=== PATIENT | female | born 1945 | race Caucasian/White ===

== ENCOUNTER → 2017-06-22 | Outpatient (CLI) | payer MEDICARE ==
[~2017-06-22] MED LIST: ASPI-496 PO; CHOL20002 PO; LISI-167 PO; PRAV40TA2 PO; SIMV10TA3 PO
== END | disposition home or self-care (01) ==
LOC: WOUND 09:01
PROVIDERS: ATTEND Internal Medicine
DX: T81.31XA Disruption of external operation (surgical) wound, not elsewhere classified, initial encounter (principal); L72.3 Sebaceous cyst; E78.00 Pure hypercholesterolemia, unspecified; M19.90 Unspecified osteoarthritis, unspecified site; I10 Essential (primary) hypertension; E66.9 Obesity, unspecified; Z68.41 Body mass index [BMI] 40.0-44.9, adult; Z72.89 Other problems related to lifestyle; Y83.8 Other surgical procedures as the cause of abnormal reaction of the patient, or of later complication, without mention of misadventure at the time of the procedure
CPT/HCPCS: 11042; G0463; WOU0463

== ENCOUNTER → 2017-06-26 | Outpatient (CLI) | payer MEDICARE | END | disposition home or self-care (01) | LOC: WOUND 08:31 | PROVIDERS: ATTEND Family Medicine | DX: T81.31XD Disruption of external operation (surgical) wound, not elsewhere classified, subsequent encounter (principal); L72.3 Sebaceous cyst; E78.00 Pure hypercholesterolemia, unspecified; M19.90 Unspecified osteoarthritis, unspecified site; I10 Essential (primary) hypertension; E66.9 Obesity, unspecified; Z68.41 Body mass index [BMI] 40.0-44.9, adult; Z72.89 Other problems related to lifestyle; Y83.8 Other surgical procedures as the cause of abnormal reaction of the patient, or of later complication, without mention of misadventure at the time of the procedure | CPT/HCPCS: 10060 ==

== ENCOUNTER → 2017-07-01 | Outpatient (CLI) | payer MEDICARE | END | disposition home or self-care (01) | LOC: WOUND 10:32 | PROVIDERS: ATTEND Internal Medicine | DX: T81.31XD Disruption of external operation (surgical) wound, not elsewhere classified, subsequent encounter (principal); L72.3 Sebaceous cyst; E78.5 Hyperlipidemia, unspecified; I10 Essential (primary) hypertension; E66.9 Obesity, unspecified; E78.00 Pure hypercholesterolemia, unspecified; M19.90 Unspecified osteoarthritis, unspecified site; Z68.41 Body mass index [BMI] 40.0-44.9, adult; Z72.89 Other problems related to lifestyle; Y83.8 Other surgical procedures as the cause of abnormal reaction of the patient, or of later complication, without mention of misadventure at the time of the procedure | CPT/HCPCS: 11042 ==

== ENCOUNTER → 2018-03-11 | Outpatient (CLI) | payer MEDICARE ==
[~2018-03-11] MED LIST changes: -CHOL20002 PO; +CHOL200052 PO; +OMNIPAQUE 350 MG/ML, 100ML BOTTLE ONE
[2018-03-11 15:20] LABS: BASOPHILS # (AUTO) 0.02 x10^3/uL (0-0.1); BASOPHILS % (AUTO) 0 % (0-1); EOSINOPHILS # (AUTO) 0.12 x10^3/uL (0-0.4); EOSINOPHILS % (AUTO) 3 % (1-7); LYMPHOCYTES % (AUTO) 25 % (22-44); MD NO; MEAN CORPUSCULAR HEMOGLOBIN 31.2 pg (27.0-34.8); MEAN CORPUSCULAR HGB CONC 33.7 g/dL (32.4-35.8); MEAN CORPUSCULAR VOLUME 92.4 fL (80-100); MEAN PLATELET VOLUME 7.6 fL (7.4-10.4); MONOCYTES # (AUTO) 0.45 x10^3/uL (0.2-0.8); MONOCYTES % (AUTO) 10 % (2-9); NEUTROPHILS # (AUTO) 2.79 x10^3/uL (1.8-6.8); NEUTROPHILS % (AUTO) 62 % (42-75); PLATELET COUNT 185 x10^3/uL (130-400); RED BLOOD COUNT 4.94 x10^6/uL (3.82-5.3); RED CELL DISTRIBUTION WIDTH 13.7 % (9.6-15.2)
[2018-03-11 15:33] LABS: % IRON SATURATION 19 % (20-55); ALANINE AMINOTRANSFERASE 30 U/L (12-78); ALBUMIN 3.8 g/dL (3.4-5.0); ANION GAP 10 mmol/L (5-15); CALCIUM 9.2 mg/dL (8.5-10.1); CHLORIDE 108 mmol/L (98-107); CREATININE 0.67 mg/dL (0.55-1.02); IRON LEVEL 70 mcg/dL (50-170); TOTAL IRON BINDING CAPACITY 366 mcg/dL (250-450)
[2018-03-11 15:37] LABS: ALKALINE PHOSPHATASE 84 U/L (45-117)
== END | disposition home or self-care (01) ==
LOC: RAD 14:50
PROVIDERS: ATTEND Internal Medicine Gastroenterology
DX: K63.89 Other specified diseases of intestine (principal); N20.0 Calculus of kidney
CPT/HCPCS: 36415; 71260; 74177; 80053; 82378; 83540; 83550; 85025; Q9967

== ENCOUNTER → 2018-03-19 | Outpatient (CLI) | payer MEDICARE, OTHER ==
[~2018-03-19] MED LIST changes: +ACET500T76 PO; +ENOX40SY4 SQ; +LISI40TA PO; -OMNIPAQUE 350 MG/ML, 100ML BOTTLE ONE; +OXYC-302 PO; +SIMV40TA3 PO
[2018-03-19 09:24] LABS: BASOPHILS # (AUTO) 0.01 x10^3/uL (0-0.1); BASOPHILS % (AUTO) 0 % (0-1); EOSINOPHILS # (AUTO) 0.11 x10^3/uL (0-0.4); EOSINOPHILS % (AUTO) 2 % (1-7); LYMPHOCYTES # (AUTO) 1.07 x10^3/uL (1-3.4); LYMPHOCYTES % (AUTO) 18 % (22-44); MD NO; MEAN CORPUSCULAR HEMOGLOBIN 31.4 pg (27.0-34.8); MEAN CORPUSCULAR HGB CONC 33.8 g/dL (32.4-35.8); MONOCYTES # (AUTO) 0.64 x10^3/uL (0.2-0.8); MONOCYTES % (AUTO) 11 % (2-9); NEUTROPHILS % (AUTO) 69 % (42-75); PLATELET COUNT 213 x10^3/uL (130-400); RED BLOOD COUNT 5.03 x10^6/uL (3.82-5.3); RED CELL DISTRIBUTION WIDTH 13.7 % (9.6-15.2)
[2018-03-19 09:37] LABS: ALANINE AMINOTRANSFERASE 30 U/L (12-78); ALBUMIN 3.8 g/dL (3.4-5.0); ANION GAP 7 mmol/L (5-15); CALCIUM 9.1 mg/dL (8.5-10.1); CHLORIDE 108 mmol/L (98-107); CREATININE 0.75 mg/dL (0.55-1.02)
[2018-03-19 09:42] LABS: ALKALINE PHOSPHATASE 91 U/L (45-117); BILIRUBIN,TOTAL 0.7 mg/dL (0.2-1.0); TOTAL PROTEIN 7.1 g/dL (6.4-8.2)
== END | disposition home or self-care (01) ==
LOC: STAR 08:09
PROVIDERS: ATTEND Surgery
DX: Z01.818 Encounter for other preprocedural examination (principal)
CPT/HCPCS: 36415; 80053; 82378; 85025; 93005

== ENCOUNTER 2018-03-24 08:23 | Inpatient (IN) | payer MEDICARE, OTHER ==
[~2018-03-24] VITALS: Ht 157.5 cm; Wt 101.0 kg
[~2018-03-24 08:23] MED LIST changes: -ACET500T76 PO; -ENOX40SY4 SQ; -OXYC-302 PO
[2018-03-24] MEDS ORDERED: LACTATED RINGERS 1,000 ML IV SCH (08:48)
[2018-03-24] MEDS ORDERED: GABAPENTIN 300 MG CAPSULE PO ONE (09:00)
[2018-03-24] MEDS ORDERED: ACETAMINOPHEN 500 MG TABLET PO ONE (09:00)
[2018-03-24] MEDS ORDERED: SCOPOLAMINE PATCH, 1.5MG PATCH.TD72 TD ONE (09:00)
[2018-03-24 09:10] VITALS: BP 142/86
[2018-03-24] MEDS ORDERED: MIDAZOLAM 1 MG/ML, 2ML ONE (09:33)
[2018-03-24] MEDS ORDERED: FENTANYL PF 250 MCG/5ML ONE (09:33)
[2018-03-24] MEDS ORDERED: BUPIVACAINE LIPOSOME/PF 20ML INFIL ONE (09:47)
[2018-03-24] MEDS ORDERED: BUPIVACAINE LIPOSOME/PF 10ML INFIL ONE (10:00)
[2018-03-24] MEDS ORDERED: ROCURONIUM 10 MG/ML,10ML ONE (11:03)
[2018-03-24] MEDS ORDERED: CEFOTETAN PMX 2GM/50ML 50 ML IVPB ONE (11:03)
[2018-03-24] MEDS ORDERED: ONDANSETRON 2MG/ML, 2ML ONE ×2 (11:03→13:52)
[2018-03-24] MEDS ORDERED: NEOSTIGMINE 1 MG/ML, 10ML ONE (11:03)
[2018-03-24] MEDS ORDERED: PROPOFOL 10 MG/ML, 20ML ONE (11:03)
[2018-03-24] MEDS ORDERED: GLYCOPYRROLATE 0.2MG/1ML, 5ML ONE (11:03)
[2018-03-24] MEDS ORDERED: SUCCINYLCHOLINE 20 MG/ML, 10ML ONE (11:03)
[2018-03-24] MEDS ORDERED: DEXAMETHASONE 4 MG/ML, 1ML ONE (11:03)
[2018-03-24] MEDS ORDERED: PROCHLORPERAZINE 5 MG/ML, 2ML IV PRN (13:00)
[2018-03-24] MEDS ORDERED: OXYcodone 5 MG/5 ML ORAL.SOL UDC PO PRN (13:00)
[2018-03-24] MEDS ORDERED: ONDANSETRON 2MG/ML, 2ML IV PRN ×2 (13:00→14:30)
[2018-03-24] MEDS ORDERED: DIPHENHYDRAMINE 50 MG/ML, 1ML IVPush PRN ×2 (13:00→14:30)
[2018-03-24] MEDS ORDERED: HYDROmorphone 1 MG/ML, 1ML IV PRN (13:00)
[2018-03-24] MEDS ORDERED: MEPERIDINE/PF 25MG/0.5ML IVPush PRN (13:00)
[2018-03-24] MEDS ORDERED: LABETALOL 5MG/ML, 20ML IV PRN (13:00)
[2018-03-24] MEDS ORDERED: hydrALAzine 20 MG/ML, 1ML IV PRN (13:00)
[2018-03-24] MEDS ORDERED: OXYcodone 5 MG/5 ML ORAL.SOL UDC ONE (13:03)
[2018-03-24] MEDS ORDERED: FENTANYL PF 100 MCG/2ML ONE (13:03)
[2018-03-24] MEDS: FENTANYL PF 100 MCG/2ML IV PRN ×2 (13:08→13:18)
[2018-03-24 14:30] VITALS: BP 137/84
[2018-03-24] MEDS ORDERED: TRAZODONE 50MG TABLET PO PRN (14:30)
[2018-03-24] MEDS ORDERED: DEXAMETHASONE 4 MG/ML, 1ML IVPush PRN (14:30)
[2018-03-24] MEDS ORDERED: LORazepam 2 MG/ML, 1ML IVPush PRN (14:30)
[2018-03-24] MEDS ORDERED: HALOPERIDOL 5 MG/ML IVPush PRN (14:30)
[2018-03-24] MEDS ORDERED: SCOPOLAMINE PATCH, 1.5MG PATCH.TD72 TD PRN (14:30)
[2018-03-24] MEDS ORDERED: LORazepam 1MG TABLET PO PRN (14:30)
[2018-03-24] MEDS ORDERED: DIPHENHYDRAMINE 25 MG CAPSULE PO PRN (15:00)
[2018-03-24] MEDS ORDERED: HYDROmorphone 2 MG/ML, 1ML IVPush PRN (15:00)
[2018-03-24] MEDS: ACETAMINOPHEN 500 MG TABLET PO SCH ×2 (17:00→23:06)
[2018-03-24] MEDS: OXYcodone IR 5MG TABLET PO PRN ×2 (17:00→21:02)
[2018-03-24] MEDS: D5%-0.45NACL+KCL 20MEQ 1,000 ML IV SCH (17:00)
[2018-03-24] MEDS: IBUPROFEN 800 MG TABLET PO SCH ×2 (17:00→21:02)
[2018-03-24 19:30] VITALS: BP 114/74
[2018-03-24] MEDS: SIMVASTATIN 40 MG TABLET PO SCH (21:02)
[2018-03-25 00:10] VITALS: BP 114/69
[2018-03-25] MEDS: OXYcodone IR 5MG TABLET PO PRN (02:48)
[2018-03-25 04:26] VITALS: BP 118/68
[2018-03-25] MEDS: ACETAMINOPHEN 500 MG TABLET PO SCH ×4 (05:06→23:35)
[2018-03-25] MEDS: D5%-0.45NACL+KCL 20MEQ 1,000 ML IV SCH ×2 (05:07→23:00)
[2018-03-25 06:10] LABS: BASOPHILS # (AUTO) 0.03 x10^3/uL (0-0.1); BASOPHILS % (AUTO) 0 % (0-1); EOSINOPHILS # (AUTO) 0.03 x10^3/uL (0-0.4); EOSINOPHILS % (AUTO) 0 % (1-7); LYMPHOCYTES # (AUTO) 0.79 x10^3/uL (1-3.4); LYMPHOCYTES % (AUTO) 10 % (22-44); MD NO; MEAN CORPUSCULAR HEMOGLOBIN 30.9 pg (27.0-34.8); MEAN CORPUSCULAR HGB CONC 32.8 g/dL (32.4-35.8); MEAN CORPUSCULAR VOLUME 94.2 fL (80-100); MEAN PLATELET VOLUME 8.5 fL (7.4-10.4); MONOCYTES # (AUTO) 0.83 x10^3/uL (0.2-0.8); MONOCYTES % (AUTO) 11 % (2-9); NEUTROPHILS # (AUTO) 5.93 x10^3/uL (1.8-6.8); NEUTROPHILS % (AUTO) 78 % (42-75); PLATELET COUNT 182 x10^3/uL (130-400); RED BLOOD COUNT 4.33 x10^6/uL (3.82-5.3); RED CELL DISTRIBUTION WIDTH 13.6 % (9.6-15.2)
[2018-03-25 06:56] LABS: CHLORIDE 105 mmol/L (98-107)
[2018-03-25 07:00] LABS: ANION GAP 10 mmol/L (5-15); CALCIUM 8.3 mg/dL (8.5-10.1); CREATININE 0.83 mg/dL (0.55-1.02)
[2018-03-25 07:27] VITALS: BP 111/72
[2018-03-25] MEDS: IBUPROFEN 800 MG TABLET PO SCH ×3 (09:26→21:25)
[2018-03-25] MEDS ORDERED: ENOXAPARIN 40 MG/0.4 ML SQ SCH (10:50)
[2018-03-25 14:43] VITALS: BP 116/72
[2018-03-25 19:59] VITALS: BP 113/71
[2018-03-25] MEDS: SIMVASTATIN 40 MG TABLET PO SCH (21:25)
[2018-03-26 00:10] VITALS: BP 117/73
[2018-03-26] MEDS: ACETAMINOPHEN 500 MG TABLET PO SCH ×4 (04:38→23:16)
[2018-03-26 05:23] LABS: BASOPHILS # (AUTO) 0.04 x10^3/uL (0-0.1); BASOPHILS % (AUTO) 0 % (0-1); EOSINOPHILS # (AUTO) 0.26 x10^3/uL (0-0.4); EOSINOPHILS % (AUTO) 3 % (1-7); LYMPHOCYTES # (AUTO) 0.75 x10^3/uL (1-3.4); LYMPHOCYTES % (AUTO) 8 % (22-44); MD NO; MEAN CORPUSCULAR HEMOGLOBIN 31.7 pg (27.0-34.8); MEAN CORPUSCULAR HGB CONC 33.5 g/dL (32.4-35.8); MEAN CORPUSCULAR VOLUME 94.6 fL (80-100); MEAN PLATELET VOLUME 8.6 fL (7.4-10.4); MONOCYTES # (AUTO) 0.83 x10^3/uL (0.2-0.8); MONOCYTES % (AUTO) 9 % (2-9); NEUTROPHILS # (AUTO) 7.73 x10^3/uL (1.8-6.8); NEUTROPHILS % (AUTO) 81 % (42-75); PLATELET COUNT 174 x10^3/uL (130-400); RED BLOOD COUNT 3.84 x10^6/uL (3.82-5.3); RED CELL DISTRIBUTION WIDTH 13.9 % (9.6-15.2)
[2018-03-26 05:27] LABS: ANION GAP 6 mmol/L (5-15); CALCIUM 8.5 mg/dL (8.5-10.1); CHLORIDE 109 mmol/L (98-107); CREATININE 0.83 mg/dL (0.55-1.02)
[2018-03-26 06:42] VITALS: BP 115/77
[2018-03-26] MEDS: IBUPROFEN 800 MG TABLET PO SCH ×3 (09:22→21:59)
[2018-03-26] MEDS: D5%-0.45NACL+KCL 20MEQ 1,000 ML IV SCH (13:18)
[2018-03-26 13:51] VITALS: BP 122/74
[2018-03-26 19:16] VITALS: BP 104/61
[2018-03-26] MEDS: SIMVASTATIN 40 MG TABLET PO SCH (21:59)
[2018-03-27 03:15] VITALS: BP 111/69
[2018-03-27] MEDS: D5%-0.45NACL+KCL 20MEQ 1,000 ML IV SCH (03:36)
[2018-03-27] MEDS: ACETAMINOPHEN 500 MG TABLET PO SCH (05:19)
[2018-03-27 05:33] LABS: ANION GAP 7 mmol/L (5-15); CHLORIDE 112 mmol/L (98-107); CREATININE 0.76 mg/dL (0.55-1.02)
[2018-03-27 05:41] LABS: BASOPHILS # (AUTO) 0.02 x10^3/uL (0-0.1); BASOPHILS % (AUTO) 0 % (0-1); EOSINOPHILS # (AUTO) 0.01 x10^3/uL (0-0.4); EOSINOPHILS % (AUTO) 0 % (1-7); LYMPHOCYTES # (AUTO) 0.81 x10^3/uL (1-3.4); LYMPHOCYTES % (AUTO) 11 % (22-44); MD NO; MEAN CORPUSCULAR HEMOGLOBIN 31.9 pg (27.0-34.8); MEAN CORPUSCULAR HGB CONC 34.2 g/dL (32.4-35.8); MEAN CORPUSCULAR VOLUME 93.1 fL (80-100); MEAN PLATELET VOLUME 8.3 fL (7.4-10.4); MONOCYTES # (AUTO) 0.65 x10^3/uL (0.2-0.8); MONOCYTES % (AUTO) 9 % (2-9); NEUTROPHILS # (AUTO) 5.76 x10^3/uL (1.8-6.8); NEUTROPHILS % (AUTO) 79 % (42-75); PLATELET COUNT 177 x10^3/uL (130-400); RED BLOOD COUNT 3.34 x10^6/uL (3.82-5.3); RED CELL DISTRIBUTION WIDTH 13.3 % (9.6-15.2)
[2018-03-27] MEDS ORDERED: ACET500T76 PO (09:11)
[2018-03-27] MEDS ORDERED: OXYC-302 PO (09:12)
[2018-03-27] MEDS ORDERED: ENOX40SY4 SQ (09:13)
[2018-03-27] MEDS ORDERED: ENOXAPARIN 40 MG/0.4 ML SQ SCH (09:30)
[2018-03-27] MEDS: IBUPROFEN 800 MG TABLET PO SCH (09:50)
[2018-03-27] MEDS ORDERED: LISINOPRIL 20 MG TABLET PO SCH (10:00)
== END 2018-03-27 10:12 | disposition home or self-care (01) | DRG 330 ==
LOC: ORIP 08:23 → EDSTATUS 11:00 → 4NOR 14:09
PROVIDERS: ADMIT Surgery; ATTEND Surgery
PROC: 0DTF4ZZ Resection of Right Large Intestine, Percutaneous Endoscopic Approach (ICD-10-PCS; principal; 2018-03-24 11:00)
DX: C18.2 Malignant neoplasm of ascending colon (principal); Z68.41 Body mass index [BMI] 40.0-44.9, adult; E78.00 Pure hypercholesterolemia, unspecified; I10 Essential (primary) hypertension; K58.9 Irritable bowel syndrome, unspecified; F17.210 Nicotine dependence, cigarettes, uncomplicated; M19.90 Unspecified osteoarthritis, unspecified site; E66.01 Morbid (severe) obesity due to excess calories; Z90.49 Acquired absence of other specified parts of digestive tract; Z80.1 Family history of malignant neoplasm of trachea, bronchus and lung; Z79.899 Other long term (current) drug therapy
CPT/HCPCS: 36415; 80048; 85025; 86850; 86900; 88307; C9290; G0378; J1100; J1650; J2250; J2405; J2704; J2710; J3010; J3490; C1765; J0330; J3480; J7120

== ENCOUNTER 2018-04-27 07:36 | Emergency (ER) | payer MEDICARE ==
[~2018-04-27] VITALS: Ht 157.5 cm; Wt 97.4 kg
[~2018-04-27 07:36] MED LIST changes: +ACET500T76 PO; +ENOX40SY4 SQ; +OXYC-302 PO
[2018-04-27 08:15] LABS: BASOPHILS # (AUTO) 0.01 x10^3/uL (0-0.1); BASOPHILS % (AUTO) 0 % (0-1); EOSINOPHILS % (AUTO) 2 % (1-7); LYMPHOCYTES # (AUTO) 0.75 x10^3/uL (1-3.4); LYMPHOCYTES % (AUTO) 12 % (22-44); MD NO; MEAN CORPUSCULAR HEMOGLOBIN 29.4 pg (27.0-34.8); MEAN CORPUSCULAR HGB CONC 32.7 g/dL (32.4-35.8); MEAN CORPUSCULAR VOLUME 90.1 fL (80-100); MEAN PLATELET VOLUME 8.2 fL (7.4-10.4); MONOCYTES # (AUTO) 0.46 x10^3/uL (0.2-0.8); MONOCYTES % (AUTO) 8 % (2-9); NEUTROPHILS # (AUTO) 4.81 x10^3/uL (1.8-6.8); NEUTROPHILS % (AUTO) 79 % (42-75); PLATELET COUNT 217 x10^3/uL (130-400); RED BLOOD COUNT 4.26 x10^6/uL (3.82-5.3); RED CELL DISTRIBUTION WIDTH 14.1 % (9.6-15.2)
[2018-04-27 08:23] LABS: ALANINE AMINOTRANSFERASE 24 U/L (12-78); ALBUMIN 3.7 g/dL (3.4-5.0); ANION GAP 11 mmol/L (5-15); CHLORIDE 112 mmol/L (98-107); CREATININE 0.83 mg/dL (0.55-1.02)
[2018-04-27 08:25] LABS: ALKALINE PHOSPHATASE 91 U/L (45-117); BILIRUBIN,TOTAL 0.9 mg/dL (0.2-1.0); TOTAL PROTEIN 6.8 g/dL (6.4-8.2)
[2018-04-27] MEDS ORDERED: HYDROmorphone 2 MG/ML, 1ML IM ONE (08:30)
[2018-04-27] MEDS ORDERED: ONDANSETRON ODT 4 MG PO ONE (08:30)
[2018-04-27] MEDS ORDERED: HYDROmorphone 2 MG/ML, 1ML ONE (08:41)
[2018-04-27] MEDS ORDERED: ONDANSETRON ODT 4 MG ONE (08:41)
[2018-04-27 10:28] LABS: MICROSCOPIC INDICATED
[2018-04-27 10:38] LABS: CULTURE INDICATED? NO
[2018-04-27 11:12] VITALS: BP 136/57
== END 2018-04-27 11:23 | disposition home or self-care (01) ==
LOC: ED 10:14
DX: N13.2 Hydronephrosis with renal and ureteral calculous obstruction (principal); E78.5 Hyperlipidemia, unspecified; I10 Essential (primary) hypertension
CPT/HCPCS: 36415; 74018; 76770; 80053; 81001; 83690; 85025; 96372; 99284; J1170; Q0162

== ENCOUNTER 2018-05-08 12:16 | Observation (INO) | payer MEDICARE ==
[~2018-05-08] VITALS: Ht 157.5 cm; Wt 96.0 kg
[2018-05-08 13:59] LABS: MICROSCOPIC INDICATED
[2018-05-08] MEDS ORDERED: SODIUM CHLORIDE FLUSH 10ML SYR IVF ONE (14:00)
[2018-05-08] MEDS ORDERED: HYDROmorphone 2 MG/ML, 1ML IVPush PRN ×2 (14:00→17:00)
[2018-05-08] MEDS ORDERED: ONDANSETRON 2MG/ML, 2ML IVPush ONE (14:00)
[2018-05-08] MEDS ORDERED: HYDROmorphone 2 MG/ML, 1ML ONE (14:02)
[2018-05-08] MEDS ORDERED: ONDANSETRON 2MG/ML, 2ML ONE ×2 (14:02→16:28)
[2018-05-08 14:04] LABS: BASOPHILS # (AUTO) 0.01 x10^3/uL (0-0.1); BASOPHILS % (AUTO) 0 % (0-1); EOSINOPHILS # (AUTO) 0.08 x10^3/uL (0-0.4); EOSINOPHILS % (AUTO) 1 % (1-7); LYMPHOCYTES # (AUTO) 0.59 x10^3/uL (1-3.4); LYMPHOCYTES % (AUTO) 7 % (22-44); MD NO; MEAN CORPUSCULAR HEMOGLOBIN 29.6 pg (27.0-34.8); MEAN CORPUSCULAR HGB CONC 33.1 g/dL (32.4-35.8); MEAN CORPUSCULAR VOLUME 89.4 fL (80-100); MEAN PLATELET VOLUME 8.6 fL (7.4-10.4); MONOCYTES # (AUTO) 0.61 x10^3/uL (0.2-0.8); MONOCYTES % (AUTO) 8 % (2-9); NEUTROPHILS # (AUTO) 6.82 x10^3/uL (1.8-6.8); NEUTROPHILS % (AUTO) 84 % (42-75); PLATELET COUNT 212 x10^3/uL (130-400); RED BLOOD COUNT 4.37 x10^6/uL (3.82-5.3); RED CELL DISTRIBUTION WIDTH 14.1 % (9.6-15.2)
[2018-05-08 14:07] LABS: ALBUMIN 3.7 g/dL (3.4-5.0); ANION GAP 10 mmol/L (5-15); CALCIUM 8.8 mg/dL (8.5-10.1); CHLORIDE 110 mmol/L (98-107); CREATININE 1.01 mg/dL (0.55-1.02)
[2018-05-08 14:25] LABS: CULTURE INDICATED? YES
[2018-05-08] MEDS ORDERED: KETOROLAC 30 MG/1 ML ONE (15:10)
[2018-05-08] MEDS ORDERED: METOCLOPRAMIDE 5 MG/ML, 2ML ONE (15:11)
[2018-05-08] MEDS ORDERED: METOCLOPRAMIDE 5 MG/ML, 2ML IVPush ONE (15:30)
[2018-05-08] MEDS ORDERED: KETOROLAC 30 MG/1 ML IVPush ONE (15:30)
[2018-05-08 15:48] VITALS: BP 130/76
[2018-05-08] MEDS ORDERED: FENTANYL PF 250 MCG/5ML ONE (15:51)
[2018-05-08] MEDS ORDERED: OMNIPAQUE 350 MG/ML, 50 ML BOTTLE ONE (16:20)
[2018-05-08] MEDS ORDERED: DEXAMETHASONE 4 MG/ML, 1ML ONE (16:28)
[2018-05-08] MEDS ORDERED: SUCCINYLCHOLINE 20 MG/ML, 10ML ONE (16:28)
[2018-05-08] MEDS ORDERED: CEFAZOLIN 1,000 MG ONE (16:28)
[2018-05-08] MEDS ORDERED: PROPOFOL 10 MG/ML, 20ML ONE (16:28)
[2018-05-08] MEDS ORDERED: OMNIPAQUE 350 MG/ML, 50 ML BOTTLE INJ ONE (16:49)
[2018-05-08] MEDS ORDERED: ALBUTEROL SULFATE 2.5 MG/3 ML NPPB PRN (17:00)
[2018-05-08] MEDS ORDERED: FENTANYL PF 100 MCG/2ML IV PRN (17:00)
[2018-05-08] MEDS ORDERED: PROMETHAZINE 25 MG/ML, 1ML IV PRN (17:00)
[2018-05-08] MEDS ORDERED: LABETALOL 5MG/ML, 20ML IV PRN (17:00)
[2018-05-08] MEDS ORDERED: HALOPERIDOL 5 MG/ML IV PRN (17:00)
[2018-05-08] MEDS ORDERED: OXYcodone 5 MG/5 ML ORAL.SOL UDC PO PRN (17:00)
[2018-05-08] MEDS ORDERED: hydrALAzine 20 MG/ML, 1ML IV PRN (17:00)
== END 2018-05-08 19:52 | disposition home or self-care (01) ==
LOC: OR 16:21 → EDIP 16:45 → 4NOR 17:40
PROVIDERS: ADMIT Urology; ATTEND Urology
DX: N20.1 Calculus of ureter (principal); E78.5 Hyperlipidemia, unspecified; I10 Essential (primary) hypertension; K63.9 Disease of intestine, unspecified; Z87.442 Personal history of urinary calculi
CPT/HCPCS: 36415; 52356; 74176; 74420; 76000; 80048; 81001; 82040; 82360; 85025; 87086; 88300; 96374; 96375; 99284; C1769; G0378; J0330; J0690; J1100; J1170; J1885; J2405; J2704; J2765; J3010; Q9967

== ENCOUNTER 2019-09-09 23:53 | Emergency (ER) | payer OTHER, MEDICARE ==
[~2019-09-09] VITALS: Ht 160 cm; Wt 96.0 kg
[~2019-09-09 23:53] MED LIST changes: +SIMV10TA18 PO; -SIMV10TA3 PO; +SIMV40TA20 PO; -SIMV40TA3 PO
[2019-09-10] MEDS ORDERED: KETOROLAC 30 MG/1 ML IVPush ONE
[2019-09-10] MEDS ORDERED: ONDANSETRON 2MG/ML, 2ML IVPush ONE
[2019-09-10] MEDS ORDERED: SODIUM CHLORIDE FLUSH 10ML SYR IVF ONE
[2019-09-10] MEDS ORDERED: HYDROmorphone 1 MG/ML, 1ML INJ IVPush PRN
[2019-09-10] MEDS ORDERED: KETOROLAC 30 MG/1 ML ONE (00:04)
--- NOTE | 2019-09-10 00:04 | NUR ---
THIS IS A 74 YO FEMALE COMING IN FOR ACUTE ONSET LLQ ABD PAIN STARTING AT 1030PM. PATIENT STATES "I'VE HAD KIDNEY STONES IN THE PAST AND IT FEELS LIKE THAT". PATINET C/O PAIN AND NAUSEA, NO VOMITING. DENIES DYSURIA OR HEMATURIA AT THIS TIME, DENIES FEVERS AT HOME. LLQ TENDER TO PALPATION. DENIES FLANK PAIN. A&OX4, ALL MONITORING IN PLACE, NSR ON MONITOR. CALL LIGHT IN REACH.
[2019-09-10] MEDS ORDERED: ONDANSETRON 2MG/ML, 2ML ONE (00:05)
[2019-09-10] MEDS ORDERED: HYDROmorphone 1 MG/ML, 1ML INJ ONE (00:05)
--- NOTE | 2019-09-10 00:13 | NUR ---
TASK RN: PT MEDICATED PER EMAR FOR 4/10 LLQ/L FLANK PAIN. PT PLACED ON 2L O2 BY NC FOR SUPPORT WHILE IN CT. PT TO CT AT THIS TIME.
[2019-09-10 00:21] LABS: BASOPHILS # (AUTO) 0.02 x10^3/uL (0-0.1); BASOPHILS % (AUTO) 0 % (0-1); EOSINOPHILS # (AUTO) 0.14 x10^3/uL (0-0.4); EOSINOPHILS % (AUTO) 3 % (1-7); LYMPHOCYTES # (AUTO) 0.89 x10^3/uL (1-3.4); LYMPHOCYTES % (AUTO) 16 % (22-44); MD NO; MEAN CORPUSCULAR HEMOGLOBIN 31.6 pg (27.0-34.8); MEAN CORPUSCULAR HGB CONC 33.5 g/dL (32.4-35.8); MEAN CORPUSCULAR VOLUME 94.3 fL (80-100); MEAN PLATELET VOLUME 7.9 fL (7.4-10.4); MONOCYTES # (AUTO) 0.51 x10^3/uL (0.2-0.8); MONOCYTES % (AUTO) 9 % (2-9); NEUTROPHILS # (AUTO) 3.97 x10^3/uL (1.8-6.8); NEUTROPHILS % (AUTO) 72 % (42-75); PLATELET COUNT 165 x10^3/uL (130-400); RED BLOOD COUNT 4.63 x10^6/uL (3.82-5.3); RED CELL DISTRIBUTION WIDTH 12.4 % (9.6-15.2)
[2019-09-10 00:33] LABS: ALANINE AMINOTRANSFERASE 21 U/L (12-78); ALBUMIN 3.5 g/dL (3.4-5.0); ANION GAP 9 mmol/L (5-15); CALCIUM 8.9 mg/dL (8.5-10.1); CHLORIDE 110 mmol/L (98-107); CREATININE 0.96 mg/dL (0.55-1.02)
[2019-09-10 00:35] LABS: ALKALINE PHOSPHATASE 105 U/L (45-117); BILIRUBIN,TOTAL 0.6 mg/dL (0.2-1.0); TOTAL PROTEIN 6.7 g/dL (6.4-8.2)
--- NOTE | 2019-09-10 01:01 | NUR ---
PATIENT AMBULATORY WITH STEADY GAIT TO RESTROOM. UA CUP PROVIDED
--- NOTE | 2019-09-10 01:06 | NUR ---
UA COLLECTED AND SENT
[2019-09-10 01:20] LABS: MICROSCOPIC AUTO
[2019-09-10 01:21] LABS: CULTURE INDICATED? YES
[2019-09-10] MEDS ORDERED: PROMETHAZINE 25 MG/ML, 1ML IM ONE (01:30)
[2019-09-10] MEDS ORDERED: PROMETHAZINE 25 MG/ML, 1ML ONE (01:34)
--- NOTE | 2019-09-10 01:39 | NUR ---
PATIENT MEDICATED PER EMAR FOR NAUSEA. TOLERATED WELL. ERP IN ROOM
[2019-09-10 01:43] VITALS: BP 130/71
--- NOTE | 2019-09-10 02:22 | NUR ---
Patient given discharge instructions and they have confirmed that they understand the instructions. Patient ambulatory with steady gait.
== END 2019-09-10 00:39 | disposition home or self-care (01) ==
LOC: ED 09-10 00:38
DX: N20.2 Calculus of kidney with calculus of ureter (principal); R94.31 Abnormal electrocardiogram [ECG] [EKG]; I10 Essential (primary) hypertension; E78.5 Hyperlipidemia, unspecified; Z85.038 Personal history of other malignant neoplasm of large intestine
CPT/HCPCS: 36415; 74176; 80053; 81001; 85025; 87086; 93005; 96372; 96374; 96375; 99285; J1170; J1885; J2405; J2550

== ENCOUNTER 2019-09-16 11:39 | Emergency (ER) | payer OTHER, MEDICARE ==
[~2019-09-16] VITALS: Ht 157.5 cm; Wt 96.5 kg
--- NOTE | 2019-09-16 12:07 | NUR ---
PATIENT STATES SHE HAS KIDNEY STONES AND IS CERTAIN BECAUSE SHE WAS HERE LAST THURSDAY AND CT CONFIRMED STONES ACCORDING TO HER, AND SHE WAS DISCHARGED WITH FLOMAX BUT CAN'T TAKE IT BECAUSE SHE GETS NAUSEATED. SHE CONTINUES TO HAVE LEFT FLANK PAIN. URINE OBTAINED AND SENT TO LAB LABELED IN HER PRESENCE.
[2019-09-16] MEDS ORDERED: ASPI-496 PO (12:15)
[2019-09-16] MEDS ORDERED: HYDROmorphone 1 MG/ML, 1ML INJ ONE (12:25)
[2019-09-16] MEDS ORDERED: ONDANSETRON 2MG/ML, 2ML ONE (12:26)
[2019-09-16] MEDS ORDERED: SODIUM CHLORIDE FLUSH 10ML SYR IVF ONE (12:30)
[2019-09-16] MEDS ORDERED: HYDROmorphone 1 MG/ML, 1ML INJ IVPush PRN (12:30)
[2019-09-16] MEDS ORDERED: ONDANSETRON 2MG/ML, 2ML IVPush ONE (12:30)
--- NOTE | 2019-09-16 12:30 | NUR ---
sent urine, but then alerted that it needs to be straight cath urine. medicated patient. ultrasound here, when they are finished will straight cath patient to allow time for bladder filling.
[2019-09-16 12:39] LABS: MICROSCOPIC AUTO
[2019-09-16 12:43] LABS: MEAN CORPUSCULAR HEMOGLOBIN 31.7 pg (27.0-34.8); MEAN CORPUSCULAR HGB CONC 33.9 g/dL (32.4-35.8); MEAN CORPUSCULAR VOLUME 93.3 fL (80-100); MEAN PLATELET VOLUME 8.1 fL (7.4-10.4); PLATELET COUNT 169 x10^3/uL (130-400); RED BLOOD COUNT 4.82 x10^6/uL (3.82-5.3); RED CELL DISTRIBUTION WIDTH 12.1 % (9.6-15.2)
[2019-09-16 12:45] LABS: CULTURE INDICATED? YES
[2019-09-16 12:50] LABS: ALANINE AMINOTRANSFERASE 25 U/L (12-78); ALBUMIN 3.6 g/dL (3.4-5.0); ANION GAP 11 mmol/L (5-15); CALCIUM 9.7 mg/dL (8.5-10.1); CHLORIDE 105 mmol/L (98-107); CREATININE 1.28 mg/dL (0.55-1.02)
[2019-09-16 12:52] LABS: ALKALINE PHOSPHATASE 105 U/L (45-117); BILIRUBIN,TOTAL 1.1 mg/dL (0.2-1.0); TOTAL PROTEIN 7.3 g/dL (6.4-8.2)
[2019-09-16 13:00] LABS: BASOPHILS # (AUTO) 0.01 x10^3/uL (0-0.1); BASOPHILS % (AUTO) 0 % (0-1); EOSINOPHILS # (AUTO) 0.03 x10^3/uL (0-0.4); EOSINOPHILS % (AUTO) 0 % (1-7); LYMPHOCYTES # (AUTO) 0.66 x10^3/uL (1-3.4); LYMPHOCYTES % (AUTO) 7 % (22-44); MD SCAN; MONOCYTES % (AUTO) 7 % (2-9); NEUTROPHILS # (AUTO) 8.58 x10^3/uL (1.8-6.8); NEUTROPHILS % (AUTO) 86 % (42-75)
--- NOTE | 2019-09-16 13:20 | NUR ---
straight cath urine sent.
[2019-09-16 13:39] VITALS: BP 155/78
--- NOTE | 2019-09-16 13:41 | NUR ---
DISCHARGE TEACHING REVIEWED
== END 2019-09-16 13:49 | disposition home or self-care (01) ==
LOC: ED 12:50
DX: N13.2 Hydronephrosis with renal and ureteral calculous obstruction (principal); I10 Essential (primary) hypertension
CPT/HCPCS: 36415; 76770; 80053; 81001; 85025; 87086; 99284; J1170; J2405

== ENCOUNTER 2019-11-06 16:20 | Inpatient (IN) | payer OTHER, MEDICARE ==
[~2019-11-06] VITALS: Ht 157.5 cm; Wt 100.0 kg
[2019-11-06] MEDS ORDERED: SODIUM CHLORIDE 0.9% 1,000ML IV ONE (17:00)
[2019-11-06] MEDS ORDERED: HYDROmorphone 2 MG/ML, 1ML IVPush PRN (17:00)
[2019-11-06] MEDS ORDERED: ONDANSETRON 2MG/ML, 2ML IVPush ONE (17:00)
[2019-11-06] MEDS ORDERED: KETOROLAC 30 MG/1 ML IVPush ONE (17:00)
--- NOTE | 2019-11-06 17:00 | NUR ---
PT HAS CO OF ABDOMINAL PAIN, DENIES PAIN URINATING OR INCREASED FREQUENCY. NO CP OR SOB. NO N/V/. PT NOT IN DISTRESS.
[2019-11-06] MEDS ORDERED: KETOROLAC 30 MG/1 ML ONE (17:07)
[2019-11-06] MEDS ORDERED: ONDANSETRON 2MG/ML, 2ML ONE (17:08)
[2019-11-06] MEDS ORDERED: HYDROmorphone 1 MG/ML, 1ML INJ ONE (17:08)
[2019-11-06 17:18] LABS: BASOPHILS % (AUTO) 0 % (0-1); EOSINOPHILS # (AUTO) 0.02 x10^3/uL (0-0.4); EOSINOPHILS % (AUTO) 0 % (1-7); LYMPHOCYTES # (AUTO) 0.51 x10^3/uL (1-3.4); LYMPHOCYTES % (AUTO) 6 % (22-44); MD NO; MEAN CORPUSCULAR HEMOGLOBIN 31.7 pg (27.0-34.8); MEAN CORPUSCULAR HGB CONC 34.2 g/dL (32.4-35.8); MEAN CORPUSCULAR VOLUME 92.5 fL (80-100); MEAN PLATELET VOLUME 8.3 fL (7.4-10.4); MONOCYTES # (AUTO) 0.34 x10^3/uL (0.2-0.8); MONOCYTES % (AUTO) 4 % (2-9); NEUTROPHILS # (AUTO) 7.37 x10^3/uL (1.8-6.8); NEUTROPHILS % (AUTO) 89 % (42-75); PLATELET COUNT 160 x10^3/uL (130-400); RED BLOOD COUNT 4.81 x10^6/uL (3.82-5.3); RED CELL DISTRIBUTION WIDTH 12.7 % (9.6-15.2)
--- NOTE | 2019-11-06 17:20 | NUR ---
PT MEDICATED PER ORDERS. IVF. IV ESTABLISHED. VSS
[2019-11-06 17:24] LABS: ANION GAP 7 mmol/L (5-15); CALCIUM 9.1 mg/dL (8.5-10.1); CHLORIDE 110 mmol/L (98-107); CREATININE 1.03 mg/dL (0.55-1.02)
[2019-11-06 17:25] LABS: ALANINE AMINOTRANSFERASE 29 U/L (12-78); ALBUMIN 3.7 g/dL (3.4-5.0)
[2019-11-06 17:27] LABS: ALKALINE PHOSPHATASE 105 U/L (45-117)
--- NOTE | 2019-11-06 18:12 | NUR ---
PT AMBULATED TO BATHROOM W STEADY GAIT FOR UA
[2019-11-06 18:32] LABS: MICROSCOPIC INDICATED
--- NOTE | 2019-11-06 18:54 | NUR ---
ASSUMED CARE OF PT AT THIS TIME.
--- NOTE | 2019-11-06 19:09 | NUR ---
PT RESTING AT THIS TIME. AWARE OF INPATIENT ADMISSION. DENIES PAIN AT THIS TIME.
[2019-11-06] MEDS ORDERED: hydrALAzine 20 MG/ML, 1ML IVPush PRN (19:30)
[2019-11-06] MEDS ORDERED: ONDANSETRON 2MG/ML, 2ML IVPush PRN (19:30)
[2019-11-06] MEDS ORDERED: morphine SULFATE 10 MG/ML, 1ML IVPush PRN (19:30)
[2019-11-06] MEDS ORDERED: HYDROcodone/APAP 5/325 TABLET PO PRN (19:30)
[2019-11-06] MEDS ORDERED: CEFTRIAXONE PMX 1GM/50ML 50 ML IV ONE (20:00)
[2019-11-06 20:19] VITALS: BP 158/76
[2019-11-06 20:37] VITALS: BP 158/76
[2019-11-07 02:10] VITALS: BP 134/80
[2019-11-07 04:54] LABS: BASOPHILS # (AUTO) 0.02 x10^3/uL (0-0.1); BASOPHILS % (AUTO) 0 % (0-1); EOSINOPHILS # (AUTO) 0.06 x10^3/uL (0-0.4); EOSINOPHILS % (AUTO) 1 % (1-7); LYMPHOCYTES # (AUTO) 1.16 x10^3/uL (1-3.4); LYMPHOCYTES % (AUTO) 17 % (22-44); MD NO; MEAN CORPUSCULAR HEMOGLOBIN 31.3 pg (27.0-34.8); MEAN CORPUSCULAR HGB CONC 33.2 g/dL (32.4-35.8); MEAN CORPUSCULAR VOLUME 94.2 fL (80-100); MEAN PLATELET VOLUME 8.3 fL (7.4-10.4); MONOCYTES # (AUTO) 0.99 x10^3/uL (0.2-0.8); MONOCYTES % (AUTO) 14 % (2-9); NEUTROPHILS # (AUTO) 4.75 x10^3/uL (1.8-6.8); NEUTROPHILS % (AUTO) 68 % (42-75); PLATELET COUNT 128 x10^3/uL (130-400); RED BLOOD COUNT 4.43 x10^6/uL (3.82-5.3)
[2019-11-07 05:00] LABS: ANION GAP 4 mmol/L (5-15); CALCIUM 8.5 mg/dL (8.5-10.1); CHLORIDE 112 mmol/L (98-107)
[2019-11-07 05:03] LABS: CREATININE 1.18 mg/dL (0.55-1.02)
[2019-11-07 06:51] VITALS: BP 136/83
[2019-11-07 13:00] VITALS: BP 158/75
[2019-11-07] MEDS ORDERED: FENTANYL PF 250 MCG/5ML ONE (13:03)
[2019-11-07] MEDS ORDERED: DEXAMETHASONE 4 MG/ML, 1ML ONE (13:06)
[2019-11-07] MEDS ORDERED: NEOSTIGMINE 1 MG/ML, 10ML ONE (13:06)
[2019-11-07] MEDS ORDERED: ROCURONIUM 10MG/ML,5ML ONE (13:06)
[2019-11-07] MEDS ORDERED: GLYCOPYRROLATE 0.2MG/1ML, 5ML ONE (13:06)
[2019-11-07] MEDS ORDERED: CEFAZOLIN 1,000 MG ONE (13:06)
[2019-11-07] MEDS ORDERED: ONDANSETRON 2MG/ML, 2ML ONE (13:06)
[2019-11-07] MEDS ORDERED: PROPOFOL 10 MG/ML, 20ML ONE (13:06)
[2019-11-07] MEDS ORDERED: CHLORHEXIDINE 15 ML UDC MM ONE (13:30)
[2019-11-07] MEDS ORDERED: CHLORHEXIDINE 15 ML UDC ONE (13:32)
[2019-11-07] MEDS ORDERED: LABETALOL 5MG/ML, 20ML IV PRN (14:00)
[2019-11-07] MEDS ORDERED: FENTANYL PF 100 MCG/2ML IV PRN (14:00)
[2019-11-07] MEDS ORDERED: morphine SULFATE 10 MG/ML, 1ML IVPush PRN (14:00)
[2019-11-07] MEDS ORDERED: MEPERIDINE/PF 25MG/0.5ML IVPush PRN (14:00)
[2019-11-07] MEDS ORDERED: HYDROmorphone 1 MG/ML, 1ML INJ IVPush PRN (14:00)
[2019-11-07] MEDS ORDERED: OXYcodone 5 MG/5 ML ORAL.SOL UDC PO PRN (14:00)
[2019-11-07] MEDS ORDERED: HYDROcodone/APAP 7.5-325MG/15ML UDC PO PRN (14:00)
[2019-11-07] MEDS ORDERED: hydrALAzine 20 MG/ML, 1ML IV PRN (14:00)
[2019-11-07] MEDS ORDERED: PROMETHAZINE 25 MG/ML, 1ML IVPush PRN (14:00)
[2019-11-07] MEDS ORDERED: HALOPERIDOL 5 MG/ML IV PRN (14:00)
[2019-11-07] MEDS ORDERED: PROMETHAZINE 25 MG/ML, 1ML ONE (16:30)
[2019-11-07 19:57] VITALS: BP 121/75
[2019-11-07 21:51] VITALS: BP 114/70
[2019-11-08 01:29] VITALS: BP 119/71
[2019-11-08 06:02] LABS: ANION GAP 8 mmol/L (5-15); CALCIUM 8.8 mg/dL (8.5-10.1); CHLORIDE 109 mmol/L (98-107)
[2019-11-08 06:44] VITALS: BP 118/70
[2019-11-08] MEDS ORDERED: CEFD300C37 PO (10:58)
[2019-11-08 12:52] VITALS: BP 148/74
== END 2019-11-08 14:28 | disposition home or self-care (01) | DRG 661 ==
LOC: ED 16:49 → EDIP 19:05 → 3N 20:15 → DCLOUNGE 11-08 14:22
PROVIDERS: ADMIT Internal Medicine; ATTEND Internal Medicine
PROC: 0T778DZ Dilation of Left Ureter with Intraluminal Device, Via Natural or Artificial Opening Endoscopic (ICD-10-PCS; 2019-11-07)
PROC: 0TF78ZZ Fragmentation in Left Ureter, Via Natural or Artificial Opening Endoscopic (ICD-10-PCS; principal; 2019-11-07 14:00)
DX: N13.6 Pyonephrosis (principal); I10 Essential (primary) hypertension; E78.5 Hyperlipidemia, unspecified; Z85.038 Personal history of other malignant neoplasm of large intestine; Z79.82 Long term (current) use of aspirin; Z90.49 Acquired absence of other specified parts of digestive tract; Z80.1 Family history of malignant neoplasm of trachea, bronchus and lung; Z87.442 Personal history of urinary calculi
CPT/HCPCS: 36415; 74018; 74176; 76000; 80048; 80053; 81001; 82360; 83690; 85025; 87086; 87147; 87635; 88300; 93005; 96374; 96375; 99285; G0378; J0690; J0696; J1100; J1170; J1885; J2405; J2550; J2704; J2710; J3010; C1769; C2617; J7030